=== PATIENT | female | born 1935 | race Caucasian/White ===

== ENCOUNTER 2018-03-14 07:22 | Emergency (ER) | payer MEDICARE ==
[2018-03-14] MEDS ORDERED: Ketorolac 30 MG/ML SDV IVPUSH ONE (08:20)
[2018-03-14] MEDS ORDERED: Sodium Chloride 0.9% 10 ML Syringe FLUSH PRN (08:20)
[2018-03-14] MEDS ORDERED: Acetaminophen 500 MG Tab PO ONE (08:21)
--- NOTE | 2018-03-14 08:28 | EDM.PDOC ---
ED HPI GENERAL MEDICAL PROBLEM - General Chief Complaint: Neuro Symptoms/Deficits Stated Complaint: FALL VIA NORTH Time Seen by Provider: 03/14/18 08:05 Source of Information: Reports: Patient, Family, Old Records History Limitations: Reports: No Limitations - History of Present Illness INITIAL COMMENTS - FREE TEXT/NARRATIVE: 82 yo female arrives via EMS for a near syncopal spell this morning at home. Is not diabetic, has not eaten. She fell forward on the ice yesterday and injured ribs on her L anterior chest. She last took an analgesic at bedtime last night, Darvocet. She reports mild increase in pain with breathing or coughing. Has no SOB. She denies vertigo. Denies nausea. This morning she was in the bathroom getting cleaned up for the day and as she came out she experienced light-headedness and nausea. She felt weak and lowered herself to the floor. She did not lose consciousness completely. EMS transported as family didn't think she could get out to the car. Has not tried to move since, is not sure if she is still weak or not. Onset: Today Onset Date: 03/14/18 Onset Time: 07:20 Duration: Minutes:, Improving Location: Reports: Chest (pain to the L anterior chest over her ribs only.) Quality: Reports: Dull Severity: Mild Improves with: Reports: Rest Worsens with: Reports: Breathing, Movement Context: Reports: Trauma (fall on ice yesterday.) Associated Symptoms: Reports: Syncope (near syncope), Weakness. 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: Other (see below) (none today.) Left Upper Chest Pain Score (Numeric/FACES): 4 - Related Data Allergies Allergy/AdvReac Type Severity Reaction Status Date / Time No Known Allergies Allergy Verified 03/14/18 07:41 Home Meds: Home Meds Ascorbic Acid [Vitamin C] 1,000 mg PO DAILY 08/17/14 [History] Aspirin 325 mg PO ASDIRECTED 08/17/14 [History] Calcium Carbonate/Vitamin D3 [Calcium 600 + Vit D Tablet] 1 tab PO DAILY [History] Cyclobenzaprine [Flexeril] 5 mg PO ASDIRECTED PRN 08/17/14 [History] Halobetasol [Halobetasol Propionate] 1 cm TOP BID PRN 08/17/14 [History] Hydrochlorothiazide 25 mg PO DAILY 08/17/14 [History] Losartan [Cozaar] 50 mg PO DAILY 08/17/14 [History] Lovastatin 20 mg PO BEDTIME 08/17/14 [History] Multivitamin with Minerals [Multiple Vitamin] 1 tab PO DAILY 08/17/14 [History] Past Medical History Cardiovascular History: Reports: High Cholesterol, Hypertension 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: - Past Surgical History Other GI Surgeries/Procedures: HERNIA Other Musculoskeletal Surgeries/Procedures:: "I BROKE A ARM", UNSURE WHICH ONE Social & Family History - Tobacco Use Smoking Status *Q: Unknown Ever Smoked - Alcohol Use Days Per Week of Alcohol Use: 0 - Recreational Drug Use Recreational Drug Use: No ED ROS GENERAL - Review of Systems Review Of Systems: See Below Constitutional: Reports: No Symptoms HEENT: Reports: No Symptoms Respiratory: Reports: No Symptoms Cardiovascular: Reports: Lightheadedness (at home, not now.), Syncope (near syncope) Endocrine: Reports: No Symptoms GI/Abdominal: Reports: No Symptoms : Reports: No Symptoms Musculoskeletal: Reports: Other (rib pain to the L anterior chest. ) Skin: Reports: No Symptoms Neurological: Reports: Weakness (generalized at home, is not sure if she is still weak.) Psychiatric: Reports: No Symptoms ED EXAM, NEURO - Physical Exam Exam: See Below Exam Limited By: No Limitations General Appearance: Alert, WD/WN, No Apparent Distress Eye Exam: Bilateral Eye: Normal Inspection Ears: Normal External Exam, Normal Canal, Hearing Grossly Normal, Normal TMs Nose: Normal Inspection, Normal Mucosa, No Blood Throat/Mouth: Normal Inspection, Normal Lips, Normal Oropharynx, Normal Voice, No Airway Compromise Head Exam: Atraumatic, Normocephalic Neck: Normal Inspection, Supple Respiratory/Chest: No Respiratory Distress, Lungs Clear, Normal Breath Sounds, No Accessory Muscle Use, Other (Rib tenderness L anterior/lower chest. No crepitus. ). No: Chest Non-Tender Cardiovascular: Regular Rate, Rhythm GI/Abdominal: Normal Bowel Sounds, Soft, Non-Tender, No Distention Neurological: Alert, Normal Mood/Affect, CN II-XII Intact, No Motor/Sensory Deficits, Oriented x 3 Back Exam: Normal Inspection. No: CVA Tenderness (R), CVA Tenderness (L) Extremities: Normal Inspection, Normal Range of Motion, Non-Tender, No Pedal Edema Psychiatric: Normal Affect, Normal Mood Skin Exam: Warm, Dry, Intact, Normal Color, No Rash Course - Vital Signs Last Recorded V/S: Last Vital Signs Temp 36.0 C 03/14/18 07:34 Pulse 84 03/14/18 07:34 Resp 14 03/14/18 07:34 BP 179/98 H 03/14/18 07:34 Pulse Ox 96 03/14/18 07:34 Orthostatic Blood Pressure [ 153/85 Standing] Orthostatic Blood Pressure [ 166/82 Sitting] Orthostatic Blood Pressure [ 148/63 Supine] - Orders/Labs/Meds Orders: Active Orders 24 hr Category Date Time Status Orthostatic Vital Signs [RC] ASDIRECTED Care 03/14/18 08:21 Active Chest 2V [CR] Stat Exams 03/14/18 08:19 Taken UA W/MICROSCOPIC [URIN] Stat Lab 03/14/18 08:47 Ordered Sodium Chloride 0.9% [Saline Flush] Med 03/14/18 08:20 Active 10 ml FLUSH ASDIRECTED PRN fentaNYL [Duragesic] Med 03/14/18 10:00 Ordered 12 mcg TRDERM Q72H Saline Lock Insert [OM.PC] Routine Oth 03/14/18 08:20 Ordered Medication Orders Sodium Chloride (Saline Flush) 10 ml FLUSH ASDIRECTED PRN PRN Reason: Keep Vein Open Last Admin: 03/14/18 08:57 Dose: 10 ml Labs: Laboratory Tests 03/14/18 03/14/18 03/14/18 Range/Units 08:21 08:21 08:47 WBC 8.9 (4.5-11.0) K/uL RBC 4.58 (3.30-5.50) M/uL Hgb 14.1 (12.0-15.0) g/dL Hct 40.6 (36.0-48.0) % MCV 89 (80-98) fL MCH 31 (27-31) pg MCHC 35 (32-36) % Plt Count 211 (150-400) K/uL Sodium 136 L (140-148) mmol/L Potassium 3.2 L (3.6-5.2) mmol/L Chloride 98 L (100-108) mmol/L Carbon Dioxide 30 (21-32) mmol/L Anion Gap 11.2 (5.0-14.0) mmol/L BUN 11 (7-18) mg/dL Creatinine 0.9 (0.6-1.0) mg/dL Est Cr Clr Drug Dosing 34.02 mL/min Estimated GFR (MDRD) 60 (>60) Glucose 102 (74-106) mg/dL Calcium 8.7 (8.5-10.1) mg/dL Magnesium (1.8-2.4) mg/dL Urine Color Yellow Urine Appearance Clear Urine pH 6.5 (4.5-8.0) Ur Specific [place] 1.010 (1.008-1.030) Urine Protein Negative (NEGATIVE) mg/dL Urine Glucose (UA) Normal (NEGATIVE) mg/dL Urine Ketones Negative (NEGATIVE) mg/dL Urine Occult Blood Negative (NEGATIVE) Urine Nitrite Negative (NEGATIVE) Urine Bilirubin Negative (NEGATIVE) Urine Urobilinogen Normal (NORMAL) mg/dL Ur Leukocyte Esterase Negative (NEGATIVE) Urine RBC Not seen (0-5) Urine WBC Not seen (0-5) Ur Epithelial Cells Rare Amorphous Sediment Rare Urine Bacteria Not seen Urine Mucus Not seen 03/14/18 Range/Units 09:05 WBC (4.5-11.0) K/uL RBC (3.30-5.50) M/uL Hgb (12.0-15.0) g/dL Hct (36.0-48.0) % MCV (80-98) fL MCH (27-31) pg MCHC (32-36) % Plt Count (150-400) K/uL Sodium (140-148) mmol/L Potassium (3.6-5.2) mmol/L Chloride (100-108) mmol/L Carbon Dioxide (21-32) mmol/L Anion Gap (5.0-14.0) mmol/L BUN (7-18) mg/dL Creatinine (0.6-1.0) mg/dL Est Cr Clr Drug Dosing mL/min Estimated GFR (MDRD) (>60) Glucose (74-106) mg/dL Calcium (8.5-10.1) mg/dL Magnesium 1.8 (1.8-2.4) mg/dL Urine Color Urine Appearance Urine pH (4.5-8.0) Ur Specific [place] (1.008-1.030) Urine Protein (NEGATIVE) mg/dL Urine Glucose (UA) (NEGATIVE) mg/dL Urine Ketones (NEGATIVE) mg/dL Urine Occult Blood (NEGATIVE) Urine Nitrite (NEGATIVE) Urine Bilirubin (NEGATIVE) Urine Urobilinogen (NORMAL) mg/dL Ur Leukocyte Esterase (NEGATIVE) Urine RBC (0-5) Urine WBC (0-5) Ur Epithelial Cells Amorphous Sediment Urine Bacteria Urine Mucus Meds: Medications Generic Name Dose Route Start Last Admin Trade Name Freq PRN Reason Stop Dose Admin Sodium Chloride 10 ml 03/14/18 08:20 03/14/18 08:57 Saline Flush FLUSH 10 ml ASDIRECTED PRN Administration Keep Vein Open Discontinued Medications Generic Name Dose Route Start Last Admin Trade Name Freq PRN Reason Stop Dose Admin Acetaminophen 1,000 mg 03/14/18 08:21 03/14/18 08:58 Tylenol Extra Strength PO 03/14/18 08:22 1,000 mg ONETIME ONE Administration Hydrochlorothiazide 25 mg 03/14/18 09:50 Hydrochlorothiazide PO 03/14/18 09:51 ONETIME ONE Ketorolac Tromethamine 15 mg 03/14/18 08:20 03/14/18 08:57 Toradol IVPUSH 03/14/18 08:21 15 mg ONETIME ONE Administration Losartan Potassium 50 mg 03/14/18 09:50 Cozaar PO 03/14/18 09:51 ONETIME ONE Potassium Chloride 40 meq 03/14/18 09:04 03/14/18 09:11 Klor-Con M20 PO 03/14/18 09:05 40 meq ONETIME ONE Administration Departure - Departure Time of Disposition: 10:10 Disposition: Home, Self-Care 01 Condition: Fair Clinical Impression: Rib injury, Hypokalemia, Near syncope - Discharge Information Referrals: PCP,None [Primary Care Provider] - Forms: ED Department Discharge - My Orders Last 24 Hours: My Active Orders 03/14/18 08:19 Chest 2V [CR] Stat 03/14/18 08:20 Sodium Chloride 0.9% [Saline Flush] 10 ml FLUSH ASDIRECTED PRN Saline Lock Insert [OM.PC] Routine 03/14/18 08:21 Orthostatic Vital Signs [RC] ASDIRECTED 03/14/18 08:47 UA W/MICROSCOPIC [URIN] Stat 03/14/18 10:00 fentaNYL [Duragesic] 12 mcg TRDERM Q72H - Assessment/Plan Last 24 Hours: My Active Orders 03/14/18 08:19 Chest 2V [CR] Stat 03/14/18 08:20 Sodium Chloride 0.9% [Saline Flush] 10 ml FLUSH ASDIRECTED PRN Saline Lock Insert [OM.PC] Routine 03/14/18 08:21 Orthostatic Vital Signs [RC] ASDIRECTED 03/14/18 08:47 UA W/MICROSCOPIC [URIN] Stat 03/14/18 10:00 fentaNYL [Duragesic] 12 mcg TRDERM Q72H
[2018-03-14] MEDS ORDERED: Potassium Chloride 20 MEQ Tab.ER PO ONE (09:04)
[2018-03-14] MEDS ORDERED: Losartan 50 MG Tab PO ONE (09:50)
[2018-03-14] MEDS ORDERED: Hydrochlorothiazide 25 MG Tab PO ONE (09:50)
[2018-03-14] MEDS ORDERED: fentaNYL 12 MCG/HR Transdermal Patch TRDERM SCH (10:00)
--- NOTE | 2018-03-15 09:53 | CR ---
Chest 2V HISTORY: Fall, pain. COMPARISON: 03/18/2011 FINDINGS: Intraventricular anterior right hemidiaphragm. The cardiac size and pulmonary vessels are n ormal. No focal infiltrates. No obvious displaced rib fracture is apparent.
== END 2018-03-14 10:34 | disposition home or self-care (01) ==
LOC: JP.ED 07:22
DX: S29.9XXA Unspecified injury of thorax, initial encounter (principal); E87.6 Hypokalemia; E78.00 Pure hypercholesterolemia, unspecified; R55 Syncope and collapse; I10 Essential (primary) hypertension; Z98.2 Presence of cerebrospinal fluid drainage device; Z79.899 Other long term (current) drug therapy; W00.0XXA Fall on same level due to ice and snow, initial encounter
CPT/HCPCS: 36415; 71046; 80048; 81001; 83735; 85027; 96374; 99284; A9270; J1885; J7050

== ENCOUNTER 2021-04-19 13:23 | Emergency (ER) | payer MEDICARE ==
--- NOTE | 2021-04-19 15:34 | EDM.PDOC ---
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 She is currently living in an assisted living facility they felt it was better that she be evaluated in the emergency department for head injury. She has no complaints at this time no headache no nausea vomiting no difficulty with vision no neuro symptoms - Related Data Allergies Allergy/AdvReac Type Severity Reaction Status Date / Time No Known Allergies Allergy Verified 04/19/21 14:33 Home Meds: Home Meds Ascorbic Acid [Vitamin C] 1,000 mg PO DAILY 08/17/14 [History] Calcium Carbonate/Vitamin D3 [Calcium 600 + Vit D Tablet] 1 tab PO DAILY 08/17/14 [History] Losartan [Cozaar] 50 mg PO DAILY 08/17/14 [History] Lovastatin 40 mg PO BEDTIME 08/17/14 [History] Multivitamin with Minerals [Multiple Vitamin] 1 tab PO DAILY 08/17/14 [History] Potassium Chloride 10 meq PO TID #20 cap.er 03/14/18 [Rx] Apixaban [Eliquis] 1 tab PO BID 04/19/21 [History] FLUoxetine [PROzac] 1 tab PO DAILY 04/19/21 [History] Famotidine 1 tab PO DAILY 04/19/21 [History] Metoprolol Tartrate 0.5 tab PO BEDTIME 04/19/21 [History] Mirabegron [Myrbetriq] 1 tab PO DAILY 04/19/21 [History] Past Medical History Cardiovascular History: Reports: High Cholesterol, Hypertension 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: - Past Surgical History Other GI Surgeries/Procedures: HERNIA Other Musculoskeletal Surgeries/Procedures:: "I BROKE A ARM", UNSURE WHICH ONE Social & Family History - Tobacco Use Tobacco Use Status *Q: Never Tobacco User ED ROS GENERAL - Review of Systems Review Of Systems: See Below Constitutional: Reports: No Symptoms HEENT: Reports: No Symptoms Respiratory: Reports: No Symptoms Cardiovascular: Reports: No Symptoms GI/Abdominal: Reports: No Symptoms Neurological: Reports: No Symptoms ED EXAM, HEAD INJURY - Physical Exam Exam: See Below Exam Limited By: No Limitations General Appearance: Alert, WD/WN, No Apparent Distress Head: Atraumatic, Normocephalic Nexus Criteria: No: Posterior, Midline Cervical Tenderness, Evidence of Intoxication, Altered Level of Consciousness, Focal Neurological Deficit, Painful Distraction Injuries Eyes: Bilateral Eye: EOMI, PERRL Respiratory: No Respiratory Distress 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 As Tested, No Motor/Sensory Deficits, Alert, Normal Mood/Affect, Oriented x 3 Course - Vital Signs Last Recorded V/S: Last Vital Signs Temp 98 F 04/19/21 14:56 Pulse 70 04/19/21 14:56 Resp 16 04/19/21 14:56 BP 140/67 04/19/21 14:56 Pulse Ox 97 04/19/21 14:56 Departure - Departure Time of Disposition: 15:34 Disposition: Home, Self-Care 01 Condition: Fair Clinical Impression: Head injury Qualifiers: Encounter type: initial encounter Qualified Code(s): S09.90XA - Unspecified injury of head, initial encounter - Discharge Information Instructions: Head Injury, Adult Referrals: Hipolito Booth MD [Primary Care Provider] - Additional Instructions: Please followup with your primary care provider in 3-5 days if not better, please call return to the emergency department with worsening of symptoms. Sepsis Event Note (ED) - Focused Exam Vital Signs: Vital Signs Temp Pulse Resp BP Pulse Ox 04/19/21 14:56 98 F 70 16 140/67 97 - Assessment/Plan Assessment:: Assessment Acuity = acute Site and laterality = head injury Etiology = secondary to fall Manifestations = none Location of injury = Home Lab values = none Plan I did talk to her about further evaluation which may include a CAT scan of the head she declined at this time she states she has no symptoms she will prefer to go home and then return to the emergency department with any development of symptomology This note was dictated using [employer] Android voice recognition software please call with any questions on syntax or grammar.
== END 2021-04-19 16:09 | disposition home or self-care (01) ==
LOC: JP.ED 13:23
DX: S09.90XA Unspecified injury of head, initial encounter (principal); E78.00 Pure hypercholesterolemia, unspecified; I10 Essential (primary) hypertension; Z79.01 Long term (current) use of anticoagulants; Z79.899 Other long term (current) drug therapy; W18.09XA Striking against other object with subsequent fall, initial encounter
CPT/HCPCS: 99282; 99283

== ENCOUNTER 2021-05-26 11:27 | Emergency (ER) | payer MEDICARE ==
--- NOTE | 2021-05-26 12:01 | EDM.PDOC ---
ED HPI GENERAL MEDICAL PROBLEM - General Chief Complaint: General Stated Complaint: FELL 4 TIMES Time Seen by Provider: 05/26/21 11:54 Source of Information: Reports: Patient, Family History Limitations: Reports: No Limitations - History of Present Illness INITIAL COMMENTS - FREE TEXT/NARRATIVE: pt arrived with a history of a UITI which was diagnosed about 3 days ago and she is on sulfa. She is much weaker and she is falling alot. She did fall this am and landed on her left buttock. This is not very painful. The weakness is noted mainly when she is getting up and down. Onset: Gradual Duration: Day(s): Location: Reports: Lower Extremity, Left Associated Symptoms: Reports: No Other Symptoms - Related Data Allergies Allergy/AdvReac Type Severity Reaction Status Date / Time No Known Allergies Allergy Verified 05/26/21 11:45 Home Meds: Home Meds Ascorbic Acid [Vitamin C] 1,000 mg PO DAILY 08/17/14 [History] Calcium Carbonate/Vitamin D3 [Calcium 600 + Vit D Tablet] 1 tab PO DAILY 08/17/14 [History] Losartan [Cozaar] 25 mg PO DAILY 08/17/14 [History] Apixaban [Eliquis] 1 tab PO BID 04/19/21 [History] Famotidine 1 tab PO DAILY 04/19/21 [History] Metoprolol Tartrate 12.5 mg PO DAILY 04/19/21 [History] Aspirin [Halfprin] 81 mg PO DAILY 05/26/21 [History] Oxybutynin 5 mg PO BID 05/26/21 [History] Potassium Chloride 20 meq PO TID 05/26/21 [History] Sulfamethoxazole/Trimethoprim [Sulfamethoxazole-Tmp Ds Tablet] 1 tab PO BID 05/26/21 [History] Past Medical History Cardiovascular History: Reports: High Cholesterol, Hypertension 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: - Past Surgical History Other GI Surgeries/Procedures: HERNIA Other Musculoskeletal Surgeries/Procedures:: "I BROKE A ARM", UNSURE WHICH ONE Social & Family History - Tobacco Use Tobacco Use Status *Q: Never Tobacco User ED ROS GENERAL - Review of Systems Review Of Systems: See Below Constitutional: Reports: Weakness HEENT: Reports: No Symptoms Respiratory: Reports: No Symptoms Cardiovascular: Reports: No Symptoms Endocrine: Reports: No Symptoms GI/Abdominal: Reports: No Symptoms : Reports: No Symptoms Musculoskeletal: Reports: Other ( weakness) Skin: Reports: No Symptoms Neurological: Reports: Other (left sided weakness. ) Psychiatric: Reports: Anxiety ED EXAM, GENERAL - Physical Exam Exam: See Below Free Text/Narrative:: pt arrived because of increased falls. She has had a recent UTI. Exam Limited By: No Limitations General Appearance: Alert, No Apparent Distress, Anxious, Other (pt has mild tenderness over the left buttock. ) Ears: Normal TMs Nose: Normal Inspection Throat/Mouth: Normal Inspection Head: Atraumatic Neck: Normal Inspection Respiratory/Chest: No Respiratory Distress Cardiovascular: Regular Rate, Rhythm GI/Abdominal: Soft, Non-Tender (Female) Exam: Deferred Rectal (Female) Exam: Deferred Back Exam: Normal Inspection Extremities: Other (pt is having increased difficulty coordinating her left leg. ) Neurological: Alert, Oriented, Normal Cognition Course - Vital Signs Last Recorded V/S: Last Vital Signs Temp 36.6 C 05/26/21 11:53 Pulse 85 05/26/21 11:53 Resp 16 05/26/21 11:53 BP 128/58 L 05/26/21 11:53 Pulse Ox 95 05/26/21 11:53 - Orders/Labs/Meds Orders: Active Orders 24 hr Category Date Time Status EKG Documentation Completion [RC] ASDIRECTED Care 05/26/21 15:38 Active Orthostatic Vital Signs [RC] ASDIRECTED Care 05/26/21 13:27 Active Sodium Chloride 0.9% [Normal Saline] 1,000 ml Med 05/26/21 13:30 Active IV ASDIRECTED EKG 12 Lead [EK] Routine Ther 05/26/21 15:38 Ordered Medication Orders Sodium Chloride (Normal Saline) 1,000 mls @ 999 mls/hr IV ASDIRECTED MADONNA Last Admin: 05/26/21 14:14 Dose: 999 mls/hr Documented by: DARRION Labs: Laboratory Tests 05/26/21 05/26/21 05/26/21 Range/Units 12:05 12:05 15:02 WBC 5.2 (4.5-11.0) K/uL RBC 4.17 (3.30-5.50) M/uL Hgb 13.0 (12.0-15.0) g/dL Hct 39.1 (36.0-48.0) % MCV 94 (80-98) fL MCH 31 (27-31) pg MCHC 33 (32-36) % Plt Count 186 (150-400) K/uL Neut % (Auto) 75.1 H (36-66) % Lymph % (Auto) 8.1 L (24-44) % [place] % (Auto) 11.2 H (2-6) % Eos % (Auto) 5.4 H (2-4) % Baso % (Auto) 0.2 (0-1) % Sodium 136 L (140-148) mmol/L Potassium 4.5 (3.6-5.2) mmol/L Chloride 101 (100-108) mmol/L Carbon Dioxide 22 (21-32) mmol/L Anion Gap 17.5 H (5.0-14.0) mmol/L BUN 17 D (7-18) mg/dL Creatinine 1.4 H D (0.6-1.0) mg/dL Est Cr Clr Drug Dosing 21.77 mL/min Estimated GFR (MDRD) 36 L (>60) Glucose 107 H (74-106) mg/dL Calcium 8.2 L (8.5-10.1) mg/dL Total Bilirubin 0.9 (0.2-1.0) mg/dL AST 21 (15-37) U/L ALT 23 (12-78) U/L Alkaline Phosphatase 115 (46-116) U/L Total Protein 6.7 (6.4-8.2) g/dL Albumin 2.8 L (3.4-5.0) g/dL Globulin 3.9 H (2.3-3.5) g/dL Albumin/Globulin Ratio 0.7 L (1.2-2.2) Urine Color Yellow (YELLOW) Urine Appearance Clear (CLEAR) Urine pH 6.5 (5.0-8.0) Ur Specific [place] 1.015 (1.008-1.030) Urine Protein Negative (NEGATIVE) mg/dL Urine Glucose (UA) Negative (NEGATIVE) mg/dL Urine Ketones Negative (NEGATIVE) mg/dL Urine Occult Blood Negative (NEGATIVE) Urine Nitrite Negative (NEGATIVE) Urine Bilirubin Negative (NEGATIVE) Urine Urobilinogen 0.2 (0.2-1.0) EU/dL Ur Leukocyte Esterase Negative (NEGATIVE) Urine RBC 0-5 (0-5) Urine WBC 0-5 (0-5) Ur Epithelial Cells Rare Amorphous Sediment Not seen Urine Bacteria Rare Urine Mucus Not seen Meds: Medications Generic Name Dose Route Start Last Admin Trade Name Frieda PRN Reason Stop Dose Admin Sodium Chloride 1,000 mls @ 999 mls/hr 05/26/21 13:30 05/26/21 14:14 Normal Saline IV 999 mls/hr ASDIRECTED MADONNA Administration - Re-Assessments/Exams Free Text/Narrative Re-Assessment/Exam: 05/26/21 17:39 pt had a fairly clear urine her lab work looked like she was mildly dehydrated and she was given a liter of fluid. She remained in a sinus rhythm. A cat scan of the head was done which did not have new findings. Departure - Departure Time of Disposition: 17:33 Disposition: Home, Self-Care 01 Condition: Fair Clinical Impression: UTI (urinary tract infection), Dehydration, Status post CVA - Discharge Information Referrals: Hipolito Booth MD [Primary Care Provider] - Forms: ED Department Discharge Care Plan Goals: push fluids, cont bactrin for 3 more days then stop coont other meds, Ask for help when she goes to get up for the next few days. Sepsis Event Note (ED) - Evaluation Sepsis Screening Result: No Definite Risk - Focused Exam Vital Signs: Vital Signs Temp Pulse Resp BP Pulse Ox 05/26/21 11:53 36.6 C 85 16 128/58 L 95 05/26/21 11:38 36.6 C 85 16 128/58 L 95 - My Orders Last 24 Hours: My Active Orders 05/26/21 13:27 Orthostatic Vital Signs [RC] ASDIRECTED 05/26/21 13:30 Sodium Chloride 0.9% [Normal Saline] 1,000 ml IV ASDIRECTED 05/26/21 15:38 EKG Documentation Completion [RC] ASDIRECTED EKG 12 Lead [EK] Routine - Assessment/Plan Last 24 Hours: My Active Orders 05/26/21 13:27 Orthostatic Vital Signs [RC] ASDIRECTED 05/26/21 13:30 Sodium Chloride 0.9% [Normal Saline] 1,000 ml IV ASDIRECTED 05/26/21 15:38 EKG Documentation Completion [RC] ASDIRECTED EKG 12 Lead [EK] Routine
[2021-05-26] MEDS ORDERED: Sodium Chloride 0.9% 1,000 ML IV SCH (13:30)
--- NOTE | 2021-05-26 16:52 | CRLCT ---
INDICATION: Increased left leg weakness. TECHNIQUE: Head CT without intravenous contrast. Coronal and sagittal reformats. COMPARISON: None available. FINDINGS: No intracranial hemorrhage, extra-axial collection, or evidence of acute cortical infarction. Patchy periventricular and deep white matter hypoattenuation, likely chronic small vessel ischemic changes. Small round hypodensity in the right basal ganglia along the lateral aspect of the thalamus (series 2, image 22), likely an age-indeterminate lacunar infarct. Niru demonstrates multiple rounded areas of hypoattenuation, likely chronic lacunar infarcts. Mild diffuse ventricular and sulcal prominence. No mass-effect or midline shift. The cranium and orbits appear intact. Paranasal sinuses and mastoid air cells are clear. IMPRESSION: 1. No intracranial hemorrhage. 2. Chronic small vessel ischemic changes. 3. Age-indeterminate lacunar infarct in the right basal ganglia. If clinical concern for acute ischemia, consider further evaluation with brain MRI. Dictated by Jovi Smith MD @ 05/26/2021 4:49:46 PM Please note that all CT scans at this facility use dose modulation, iterative reconstruction, and/or weight-based dosing when appropriate to reduce radiation dose to as low as reasonably achievable. Dictated by: Jovi Smith MD @ 05/26/2021 16:49:51 (Electronically Signed)
== END 2021-05-26 17:54 | disposition home or self-care (01) ==
LOC: JP.ED 11:27
DX: N39.0 Urinary tract infection, site not specified (principal); E86.0 Dehydration; E78.00 Pure hypercholesterolemia, unspecified; I10 Essential (primary) hypertension; Z79.82 Long term (current) use of aspirin; Z79.01 Long term (current) use of anticoagulants; Z86.73 Personal history of transient ischemic attack (TIA), and cerebral infarction without residual deficits; Z79.899 Other long term (current) drug therapy
CPT/HCPCS: 36415; 70450; 80053; 81001; 85025; 93005; 93010; 99283; 99285; J7030

== ENCOUNTER 2022-04-09 12:58 | Emergency (ER) | payer MEDICARE | END 2022-04-09 16:06 | disposition home or self-care (01) | LOC: JP.ED 12:58 | DX: R55 Syncope and collapse (principal); I10 Essential (primary) hypertension; Z79.899 Other long term (current) drug therapy; Z79.01 Long term (current) use of anticoagulants; Z79.82 Long term (current) use of aspirin | CPT/HCPCS: 36415; 80048; 85025; 99282; 99284 ==

== ENCOUNTER 2022-04-15 12:35 | Emergency (ER) | payer MEDICARE ==
[2022-04-15 13:59] LABS: TROPONIN I HIGH SENSITIVITY 9.4 pg/mL (<=60.3)
== END 2022-04-15 16:04 | disposition home or self-care (01) ==
LOC: JP.ED 12:35
DX: R55 Syncope and collapse (principal); E78.00 Pure hypercholesterolemia, unspecified; I10 Essential (primary) hypertension; Z79.82 Long term (current) use of aspirin
CPT/HCPCS: 36415; 80048; 81001; 84484; 85025; 93005; 93010; 99282; 99284-25

== ENCOUNTER 2023-09-10 23:40 | Emergency (ER) | payer MEDICARE ==
[2023-09-11] MEDS ORDERED: Sodium Chloride 0.9% 1,000 ML IV SCH (00:15)
[2023-09-11 00:18] LABS: BASOPHILS PERCENT AUTO 0.1 % (0.1-1.3); EOSINOPHILS PERCENT AUTO 0.1 % (0.0-5.4); HEMATOCRIT 40.5 % (34.3-46.0); HEMOGLOBIN 13.8 g/dL (11.2-15.5); IMMATURE GRAN ABSOLUTE AUTO 0.08 K/uL (0.00-0.23); IMMATURE GRAN PERCENT AUTO 0.6 % (0.0-0.7); LYMPHOCYTES ABSOLUTE AUTO 0.23 K/uL (0.8-3.3); LYMPHOCYTES PERCENT AUTO 1.6 % (11.4-47.7); MEAN CORPUSCULAR HEMOGLOBIN 31.8 pg (31.6-35.5); MEAN CORPUSCULAR HGB CONC 34.1 g/dL (31.6-35.5); MEAN CORPUSCULAR VOLUME 93.3 fL (81.4-99.0); MONOCYTES ABSOLUTE AUTO 0.39 K/uL (0.20-0.90); MONOCYTES PERCENT AUTO 2.8 % (3.3-12.6); NEUTROPHILS ABSOLUTE AUTO 13.46 K/uL (1.0-7.6); NEUTROPHILS PERCENT AUTO 94.8 % (40.0-78.1); PLATELET COUNT,PLT 135 K/uL (130-375); RED BLOOD CELL COUNT 4.34 M/uL (3.77-5.24); WHITE BLOOD CELL COUNT,WBC 14.2 K/uL (3.2-11.0)
[2023-09-11 00:23] LABS: BASOPHILS ABSOLUTE AUTO 0.01 K/uL (0.00-0.10); EOSINOPHILS ABSOLUTE AUTO 0.01 K/uL (0.00-0.40)
[2023-09-11 00:40] LABS: A/G RATIO 0.8 (1.2-2.2); ALANINE AMINOTRANSFERASE,ALT 88 U/L (12-78); ALBUMIN 3.1 g/dL (3.4-5.0); ALKALINE PHOSPHATASE 202 U/L (46-116); ASPARTATE AMNIOTRANSFERASE,AST 152 U/L (15-37); BLOOD UREA NITROGEN,BUN 14 mg/dL (7-18); CALCIUM 8.1 mg/dL (8.5-10.1); CARBON DIOXIDE,CO2 23 mmol/L (21-32); CHLORIDE,CL 104 mmol/L (100-108); CREATININE 0.9 mg/dL (0.6-1.0); EST CRCL DRUG DOSING (CG) 33.52 mL/min; ESTIMATED GFR 61 mL/min (>60); GLUCOSE RANDOM 114 mg/dL (74-106); PROTEIN TOTAL,TP 7.2 g/dL (6.4-8.2); SODIUM,NA 142 mmol/L (140-148)
[2023-09-11 05:52] LABS: A/G RATIO 0.7 (1.2-2.2); ALBUMIN 2.6 g/dL (3.4-5.0); BILIRUBIN DIRECT 3.15 mg/dL (0.0-0.2); BILIRUBIN INDIRECT 2.25; BILIRUBIN TOTAL 5.4 mg/dL (0.2-1.0); PROTEIN TOTAL,TP 6.2 g/dL (6.4-8.2)
[2023-09-11 06:18] LABS: C-REACTIVE PROTEIN 3.79 mg/dL (0.0-0.3); CALCIUM 7.7 mg/dL (8.5-10.1); CREATININE 0.9 mg/dL (0.6-1.0); EST CRCL DRUG DOSING (CG) 33.52 mL/min
[2023-09-11 06:22] LABS: BASOPHILS PERCENT AUTO 0.1 % (0.1-1.3); HEMATOCRIT 38.4 % (34.3-46.0); HEMOGLOBIN 13.1 g/dL (11.2-15.5); IMMATURE GRAN ABSOLUTE AUTO 0.16 K/uL (0.00-0.23); IMMATURE GRAN PERCENT AUTO 0.8 % (0.0-0.7); LYMPHOCYTES ABSOLUTE AUTO 0.38 K/uL (0.8-3.3); MEAN CORPUSCULAR HGB CONC 34.1 g/dL (31.6-35.5); MEAN CORPUSCULAR VOLUME 93.9 fL (81.4-99.0); MONOCYTES ABSOLUTE AUTO 0.86 K/uL (0.20-0.90); MONOCYTES PERCENT AUTO 4.4 % (3.3-12.6); NEUTROPHILS ABSOLUTE AUTO 17.97 K/uL (1.0-7.6); NEUTROPHILS PERCENT AUTO 92.7 % (40.0-78.1); PLATELET COUNT,PLT 128 K/uL (130-375); RED BLOOD CELL COUNT 4.09 M/uL (3.77-5.24); WHITE BLOOD CELL COUNT,WBC 19.4 K/uL (3.2-11.0)
[2023-09-11 06:23] LABS: ANION GAP 15.9 mmol/L (5.0-14.0); POTASSIUM,K 2.9 mmol/L (3.6-5.2)
[2023-09-11 06:23] LABS: BASOPHILS ABSOLUTE AUTO 0.02 K/uL (0.00-0.10)
[2023-09-11] MEDS ORDERED: Potassium Chloride 20 MEQ in Premix Bag 1 BAG IV ONE (06:24)
[2023-09-11] MEDS ORDERED: Meropenem 1 GM in Sodium Chloride 0.9% 100 ML IV ONE (06:45)
[2023-09-11] MEDS ORDERED: Piperacillin/Tazobactam 3.375 GM in Sodium Chloride 0.9% 50 ML IV SCH (15:15)
[2023-09-11] MEDS ORDERED: Meropenem 1 GM in Sodium Chloride 0.9% 100 ML IV SCH (15:15)
== END 2023-09-11 16:20 | disposition other institution (70) ==
LOC: JP.ED 23:40
DX: K80.51 Calculus of bile duct without cholangitis or cholecystitis with obstruction (principal); I25.10 Atherosclerotic heart disease of native coronary artery without angina pectoris; E78.00 Pure hypercholesterolemia, unspecified; I11.0 Hypertensive heart disease with heart failure; I50.9 Heart failure, unspecified; Z20.822 Contact with and (suspected) exposure to COVID-19; Z86.73 Personal history of transient ischemic attack (TIA), and cerebral infarction without residual deficits; Z79.01 Long term (current) use of anticoagulants; Z79.82 Long term (current) use of aspirin; Z79.899 Other long term (current) drug therapy
CPT/HCPCS: 36415; 74181; 76705; 80048; 80053; 80076; 83690; 85025; 86140; 96361; 96365; 96366; 96368; 99285; J2185; J3480; J3490; J7030; U0002